=== PATIENT | female | born 1990 | race Caucasian/White ===

== ENCOUNTER 2025-07-19 05:49 | Emergency (ER) | payer OTHER, SELFPAY ==
[2025-07-19] MEDS ORDERED: Ketorolac Tromethamine 30 MG (1 mL) VIAL ONE (06:34)
[2025-07-19] MEDS ORDERED: Ondansetron PF 4 MG/2 ML Vial ONE (06:34)
[2025-07-19] MEDS ORDERED: Acetaminophen 500 MG TAB ONE (06:34)
[2025-07-19 06:41] LABS: #Basophils Less than 0.03 10x3/uL (0.0-0.2); #Eosinophils 0.05 10x3/uL (0.0-0.5); #Monocytes 0.94 10x3/uL (0.0-1.1); #Neutrophils 3.78 10x3/uL (1.5-8.4); %Basophils 0.4 % (0.0-2.0); %Eosinophils 0.9 % (0.0-6.0); %Lymphocytes 8.7 % (18.0-47.0); %Monocytes 17.8 % (0.0-10.0); %Neutrophils 71.4 % (40.0-75.0); Hematocrit 39.8 % (34.9-44.5); Hemoglobin 13.8 g/dL (12.0-15.5); Mean Corpuscular Hemoglobin 30.1 pg (27.0-33.0); Mean Corpuscular Volume 86.9 fL (81.6-98.3); Platelet Count 162 10x3/uL (150-450); Red Blood Cell (RBC) Count 4.58 10x6/uL (3.90-5.03); White Blood Cell (WBC) Count 5.29 10x3/uL (3.5-10.5)
[2025-07-19 06:50] LABS: BHCG - Serum Negative (NEGATIVE); Pregs Control Background? CLEAR/WHITE (CLR/WHITE); Pregs Control Bar Appear? YES (CONTROL BAR)
[2025-07-19 07:00] LABS: ALT (SGPT) 11 U/L (Less than 34); AST (SGOT) 19 U/L (11-34); Albumin 3.5 g/dL (3.1-4.5); Alkaline Phosphatase 90 U/L (40-110); Anion Gap 15 mmol/L (10-20); BUN (Urea Nitrogen) 7 mg/dL (7.0-18.7); Bilirubin, Total 0.7 mg/dL (0.3-1.2); CK (CPK) 24 U/L (29-168); Calc. Creatinine Clearance 0 mL/min (70-130); Calcium 8.9 mg/dL (7.8-10.44); Carbon Dioxide 21 mmol/L (22-29); Chloride 102 mmol/L (98-107); Globulin 3.1 g/dL (2.4-3.5); Glucose 128 mg/dL (70-105); Potassium 3.9 mmol/L (3.5-5.1); Sodium 134 mmol/L (136-145)
[2025-07-19 07:05] LABS: Acetaminophen Less than 10 mcg/mL (Less than 10); Lipase 71 U/L (8-78); Magnesium 1.8 mg/dL (1.6-2.6); Salicylate Less than 8.0 mg/dL (Less than 8.0)
[2025-07-19 07:07] LABS: Troponin I Less than 0.010 ng/mL (< 0.028)
== END 2025-07-19 07:51 | disposition home or self-care (01) ==
LOC: CSHERS 05:49
DX: J10.1 Influenza due to other identified influenza virus with other respiratory manifestations (principal); R56.9 Unspecified convulsions; Z55.6 Problems related to health literacy; Z79.899 Other long term (current) drug therapy
CPT/HCPCS: 70450; 71045; 80053; 80307; 82550; 83605; 83690; 83735; 84484; 84703; 85025; 87428; 93005; 96374; 96375; J1885; J2405